=== PATIENT | female | born 1975 | race Caucasian/White ===

== ENCOUNTER 2024-12-25 15:15 | Emergency (ER) | payer OTHER, SELFPAY ==
[2024-12-25 15:19] VITALS: BP 146/87
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
== END 2024-12-25 16:04 | disposition home or self-care (01) ==
LOC: EMR 15:15
PROVIDERS: EMERGENCY PHYSICIAN Emergency Medicine; FAMILY PHYSICIAN Family Medicine
DX: S13.4XXA Sprain of ligaments of cervical spine, initial encounter (principal); V89.2XXA Person injured in unspecified motor-vehicle accident, traffic, initial encounter; R03.0 Elevated blood-pressure reading, without diagnosis of hypertension
CPT/HCPCS: 99283

== ENCOUNTER 2025-03-19 06:17 | Day surgery (SDC) | payer OTHER, SELFPAY ==
[2025-03-19 08:52] VITALS: BMI 20.4
[2025-03-19 08:53] VITALS: BMI 20.4
[2025-03-19 08:54] VITALS: BP 124/75
[2025-03-19] MEDS: NORMOSOL-R/PLASMALYTE-A 1000 IV (09:11)
[2025-03-19] MEDS: TYLENOL 1000 MG PO (09:12)
[2025-03-19] MEDS: CELEBREX 200 MG PO (09:12)
[2025-03-19 13:12] VITALS: BP 101/55
[2025-03-19 13:15] VITALS: BP 96/45
--- NOTE | 2025-03-19 13:19 | W.IMMPOSTOP ---
Surgical Immed Post Op Note
-
Primary Surgeon: Sotero Valadez MD
Assisting Surgeon: None
Pre-op Diagnosis: Internal hemorrhoids, anal skin tag
Post-op Diagnosis: Internal hemorrhoids, anal skin tag
Procedure Performed: Exam under anesthesia, transanal hemorrhoidal dearterialization x 2, suture ligation of hemorrhoids x 2, excision of anal skin tag, bilateral pudendal nerve block
Anesthesia Type: Sedation with local
Specimen / Cultures: Anal skin tag
Estimated Blood Loss: 5 mL
Complications: None
Operative Findings: Per op note
--- NOTE | 2025-03-19 13:20 | OR.RPT ---
Operative Report
Operative Report
DATE OF OPERATION: 03/19/2025
SURGEON: Sotero Valadez MD
PREOPERATIVE DIAGNOSIS: Internal hemorrhoids, anal skin tag
POSTOPERATIVE DIAGNOSIS: Internal hemorrhoids, anal skin tag
OPERATION: Exam under anesthesia, transanal hemorrhoidal dearterialization x 2, suture ligation of internal hemorrhoids x 2, excision of anal skin tag, bilateral pudendal nerve block
ASSISTANTS:
1. None
ANESTHESIA: Sedation with local
ESTIMATED BLOOD LOSS: 5 mL
FINDINGS:
1. Small internal hemorrhoids in the LLQ and RPQ, performed THD
2. Very small internal hemorrhoids in the left posterolateral quadrant and RAQ, perform suture ligation
3. Small anterior midline skin tag, performed excision
SPECIMENS:
1. Anterior midline skin tag
DRAINS: N/A
COMPLICATIONS: None
INDICATIONS: The patient is a 49-year-old female who presented with perianal discomfort worse with BMs and was found to have small internal hemorrhoids. Rubber band ligation was attempted in the office and was not tolerated due to pain. Therefore,
the patient was recommended to have surgery. I explained that a suture hemorrhoidopexy under THD guidance would be the plan for any concerning internal hemorrhoids. However, if a hemorrhoid identified on exam under anesthesia is too large for a
suture hemorrhoidopexy, I would perform an excisional hemorrhoidectomy. The operation was discussed with the patient in detail, including the risks, benefits and alternatives. Risks described included, but not limited to, bleeding, infection,
urinary retention, damage to nearby structures such as the anal sphincter, fecal incontinence, anal stenosis, recurrence, and anesthetic risks. The patient understood and agreed to proceed. The consent was signed and placed in the chart.
PROCEDURE IN DETAIL: The patient was taken to the operating room. The patient was placed on the operating table in prone position. Sequential compression devices were placed bilaterally. Sedation was commenced without complication. Two seat belts
were secured around the legs and upper back. The buttocks were taped apart. The perineum was prepped and draped in the usual fashion. A time-out was performed verifying the correct patient, procedure, operative site, positioning, and special
equipment.
Local anesthesia used was a mixture of 60 mL of 0.25% Marcaine with epinephrine and 0.6 mg of dexamethasone. 40 mL was injected perianally at the beginning of the case. The anorectal exam was performed assessing all four quadrants of the anal canal
using Hill-Vasquez retractors in progressively increasing size. There was a small anal skin tag in the anterior midline. There was minimal skin tag tissue noted in the posterior midline. There were small internal hemorrhoids noted in the left
lateral position and the right posterior position, for which I performed transanal hemorrhoidal dearterialization. There were tiny internal hemorrhoids noted in the left posterolateral position and right anterior position, for which I performed
suture ligation. There was no proctitis or other anorectal pathology noted.
For the THD, using the THD retractor with U/S probe, the hemorrhoid was exposed. I ligated the pedicle of the hemorrhoid after identifying it with audible doppler signal with a 2-0 Vicryl in a figure-of-8 fashion, leaving the tail long. I took
running mucosal bites of the hemorrhoid distally toward the dentate line, stopping 1 cm above the dentate line. I tied this down to the long tail in order to pexy the hemorrhoid. Hemostasis was confirmed.
For the suture ligation, I exposed the hemorrhoid using the medium Hill-Vasquez retractor. I ligated the hemorrhoid with a 2-0 Vicryl in a [id number] fashion. Hemostasis was confirmed.
I proceeded with skin tag excision. Using an Allis clamp, I elevated the skin tag away from the sphincter muscle and excised it using Metzenbaum scissors. Hemostasis was achieved with electrocautery. I reapproximated the anoderm with 2 simple
interrupted 3-0 Vicryl's.
The anal canal was irrigated with saline, checking for hemostasis, which was ensured. The remaining 20 mL of local were injected. 5 mL was injected bilaterally for a pudendal nerve block. 10 mL was injected around the surgical site and perianally.
The smallest Hill-Vasquez was used to check hemostasis once more, which was confirmed.
At this point, the procedure was complete. All needle, sponge and instrument counts were correct. The patient tolerated the procedure well and was transferred to the recovery room in stable condition with gauze dressing in place secured with silk
tape.
DICTATED BY: Sotero Valadez MD
[2025-03-19 13:31] VITALS: BP 106/48
== END 2025-03-19 14:08 | disposition home or self-care (01) ==
LOC: SDS 06:17
PROVIDERS: ATTENDING PHYSICIAN Surgery
DX: K64.8 Other hemorrhoids (principal); K64.4 Residual hemorrhoidal skin tags
CPT/HCPCS: 46948; 88304